=== PATIENT | female | born 1945 | race Caucasian/White ===

== ENCOUNTER 2017-09-09 10:01 | Outpatient (CLI) | payer MEDICARE | END 2017-09-09 10:02 | disposition home or self-care (01) | LOC: BICMAMMO 10:01 | PROVIDERS: ATTEND Family Medicine | DX: Z12.31 Encounter for screening mammogram for malignant neoplasm of breast (principal); R92.1 Mammographic calcification found on diagnostic imaging of breast | CPT/HCPCS: 77063; 77067 ==

== ENCOUNTER 2018-08-19 09:11 | Outpatient (CLI) | payer MEDICARE ==
--- NOTE | 2018-08-19 10:02 | BD ---
DEXA SCAN: INDICATION: Osteoporosis screening. COMPARISON: Prior exam dated 06/01/2016. FINDINGS: Lumbar Spine: BMD (g/cm2) L1 0.700 T-Score: -2.6 Z-Score: -0.7 L2 0.799 T-Score: -2.1 Z-Score: 0.1 L3 0.802 T-Score: -2.6 Z-Score: -0.3 L4 0.990 T-Score: -0.6 Z-Score: 1.7 L1-L4 0.843 T-Score: -1.9 Z-Score: 0.4 The bone mineral density of the L1 through L4 region has declined 2.8% from the baseline dated 2010 and has declined 6.4% from the previous study in 2017. Femoral Neck: 0.641 T-Score: -1.9 Z-Score: 0.0 Total Femur: 0.812 T-Score: -1.1 Z-Score: 0.5 The bone mineral density of the left total hip region has declined 3.8% from the baseline. The FRAX WHO fracture risk assessment tool for fracture risk for the patient for a major osteoporotic fracture is 17% and for a hip fracture is 5.8%. Impression: Based on WHO criteria, the patient's bone mineral density is considered osteopenic. The patient is a t moderate risk for fracture. The bone mineral density of the left femoral neck region has declined 3.8% from the previous exam dated 06/11/2016. Bone mineral density of the lumbar spine has declined 6 .4% from the previous study. POS: OFF
== END 2018-08-19 09:12 | disposition home or self-care (01) ==
LOC: BICMAMMO 09:11
PROVIDERS: ATTEND Family Medicine
DX: M81.0 Age-related osteoporosis without current pathological fracture (principal); M85.89 Other specified disorders of bone density and structure, multiple sites
CPT/HCPCS: 77080

== ENCOUNTER 2018-09-23 12:46 | Outpatient (CLI) | payer MEDICARE ==
--- NOTE | 2018-09-23 15:18 | MMO ---
Bilateral MAMMO Bilat Screen [facility]. CLINICAL HISTORY: Patient is 72 years old and is seen for screening. The patient has no family history of breast cancer. The patient has no personal history of cancer. VIEWS: The views performed were: bilateral craniocaudal with tomosynthesis and bilateral mediolateral oblique with tomosynthesis. FILMS COMPARED: The present examination has been compared to prior imaging studies performed at [facility] on 05/18/2014 and 09/09/2017, and at [facility] on 06/24/2012 and 06/30/2012. MAMMOGRAM FINDINGS: The breasts are heterogeneously dense, which could obscure a lesion on mammography. Finding 1: There are stable benign appearing calcifications seen in both breasts. There are also vascular calcifications. Finding 2: There is a nodule seen in the sub-areolar region of the left breast. There are no suspicious masses, suspicious calcifications, or new areas of architectural distortion. IMPRESSION: THERE IS NO MAMMOGRAPHIC EVIDENCE OF MALIGNANCY. A ROUTINE FOLLOW-UP MAMMOGRAM IN 1 YEAR IS RECOMMENDED. THE RESULTS OF THIS EXAM WERE SENT TO THE PATIENT. ACR BI-RADS Category 2 - Benign finding MAMMOGRAPHY NOTE: 1. A negative mammogram report should not delay a biopsy if a dominant of clinically suspicious mass is present. 2. Approximately 10% to 15% of breast cancers are not detected by mammography. 3. Adenosis and dense breasts may obscure an underlying neoplasm.
== END 2018-09-23 12:47 | disposition home or self-care (01) ==
LOC: BICMAMMO 12:46
PROVIDERS: ATTEND Family Medicine
DX: Z12.31 Encounter for screening mammogram for malignant neoplasm of breast (principal)
CPT/HCPCS: 77063; 77067

== ENCOUNTER 2019-10-10 10:43 | Outpatient (CLI) | payer MEDICARE ==
--- NOTE | 2019-10-10 11:32 | MMO ---
Bilateral MAMMO Bilat Screen [facility]. CLINICAL HISTORY: Patient is 73 years old and is seen for screening. The patient has no family history of breast cancer. The patient has no personal history of cancer. VIEWS: The views performed were: bilateral craniocaudal with tomosynthesis and bilateral mediolateral oblique with tomosynthesis. FILMS COMPARED: The present examination has been compared to prior imaging studies performed at [facility] on 09/09/2017 and 09/23/2018, and at [facility] on 05/30/2015 and 06/11/2016. This study has been interpreted with the assistance of computer-aided detection. MAMMOGRAM FINDINGS: The breasts are heterogeneously dense, which could obscure a lesion on mammography. There are stable benign appearing calcifications seen in both breasts. There are also vascular calcifications. Nodularity is stable. There are no suspicious masses, suspicious calcifications, or new areas of architectural distortion. IMPRESSION: THERE IS NO MAMMOGRAPHIC EVIDENCE OF MALIGNANCY. A ROUTINE FOLLOW-UP MAMMOGRAM IN 1 YEAR IS RECOMMENDED. THE RESULTS OF THIS EXAM WERE SENT TO THE PATIENT. ACR BI-RADS Category 2 - Benign finding MAMMOGRAPHY NOTE: 1. A negative mammogram report should not delay a biopsy if a dominant of clinically suspicious mass is present. 2. Approximately 10% to 15% of breast cancers are not detected by mammography. 3. Adenosis and dense breasts may obscure an underlying neoplasm. Reported by: SOURAV SAMUEL MD Electonically Signed: [id number]
== END 2019-10-10 10:44 | disposition home or self-care (01) ==
LOC: BICMAMMO 10:43
PROVIDERS: ATTEND Family Medicine
DX: Z12.31 Encounter for screening mammogram for malignant neoplasm of breast (principal)
CPT/HCPCS: 77063; 77067

== ENCOUNTER 2020-06-24 08:10 | Outpatient (CLI) | payer MEDICARE ==
--- NOTE | 2020-06-24 10:24 | BD ---
DEXA BONE DENSITY STUDY: Date: 06/24/2020 HISTORY: Postmenopausal. FINDINGS: Lumbar Spine: BMD (g/cm2) L1 0.779 T-Score: -1.9 L2 0.838 T-Score: -1.7 L3 1.024 T-Score: -0.5 L4 0.958 T-Score: -0.9 Total 0.914 T-Score: -1.2 Left Femoral Neck: 0.681 T-Score: -1.5 Total Femur: 0.826 T-Score: -1.0 IMPRESSION: 1. Osteopenia of the left femoral neck and lumbar spine. 2. The 10 year fracture risk for major osteoporotic fracture is 17% and for a hip fracture is 6.9%. These fracture probabilities are calculated for an untreated patient. POS: [facility]
== END 2020-06-24 08:11 | disposition home or self-care (01) ==
LOC: BICMAMMO 08:10
PROVIDERS: ATTEND Physician Assistant
DX: M85.852 Other specified disorders of bone density and structure, left thigh (principal); M85.88 Other specified disorders of bone density and structure, other site
CPT/HCPCS: 77080

== ENCOUNTER 2020-10-18 13:09 | Outpatient (CLI) | payer MEDICARE | END 2020-10-18 13:10 | disposition home or self-care (01) | LOC: BICMAMMO 13:09 | PROVIDERS: ATTEND Physician Assistant | DX: Z12.31 Encounter for screening mammogram for malignant neoplasm of breast (principal) | CPT/HCPCS: 77063; 77067 ==

== ENCOUNTER 2021-10-28 11:43 | Outpatient (CLI) | payer MEDICARE | END 2021-10-28 11:44 | disposition home or self-care (01) | LOC: BICMAMMO 11:43 | PROVIDERS: ATTEND Physician Assistant | DX: Z12.31 Encounter for screening mammogram for malignant neoplasm of breast (principal) | CPT/HCPCS: 77063; 77067 ==

== ENCOUNTER 2021-11-28 15:20 | Emergency (ER) | payer MEDICARE ==
[~2021-11-28 15:20] MED LIST: Iopamidol-370 76% 500 ML 1 ML ONE
[2021-11-28 16:56] LABS: #Eosinphils 0.1 thou/uL (0.0-0.7); #Lymphocytes 1.7 thou/uL (1.20-3.40); %Basophils 0.3 % (0.0-1.0); %Eosinophils 1.1 % (0.0-10.0); %Lymphocytes 15.5 % (21.0-51.0); %Neutrophils 74.1 % (42.0-75.0); Hemoglobin 14.3 g/dL (12.0-16.0); Mean Corpuscular HGB CONC 33.3 g/dL (32.0-36.0); Mean Corpuscular Hemoglobin 30.9 pg (27.0-31.0); Mean Corpuscular Volume 93.1 fL (78.0-98.0); Mean Platelet Volume 7.4 fL (7.4-10.4); Platelet Count 276 thou/uL (130-400); RBC Distribution Width 11.9 % (11.5-14.5); Red Blood Cell (RBC) Count 4.63 mill/uL (4.20-5.40); White Blood Cell (WBC) Count 10.8 thou/uL (4.8-10.8)
[2021-11-28 17:42] LABS: ALT (SGPT) 9 U/L (8-55); AST (SGOT) 21 U/L (5-34); Albumin 4.2 g/dL (3.4-4.8); Alkaline Phosphatase 65 U/L (40-110); Anion Gap 13 mmol/L (10-20); BUN (Urea Nitrogen) 8 mg/dL (9.8-20.1); Bilirubin, Total 0.6 mg/dL (0.2-1.2); Calc. Creatinine Clearance 0 mL/min (70-130); Calcium 9.8 mg/dL (7.8-10.44); Carbon Dioxide 25 mmol/L (23-31); Chloride 102 mmol/L (98-107); Estimated GFR 80; Globulin 3.7 g/dL (2.4-3.5); Glucose 109 mg/dL (83-110); Potassium 3.6 mmol/L (3.5-5.1); Protein, Total 7.9 g/dL (5.8-8.1); Sodium 136 mmol/L (136-145)
== END 2021-11-28 19:36 | disposition home or self-care (01) ==
LOC: ERS 15:20
DX: K57.21 Diverticulitis of large intestine with perforation and abscess with bleeding (principal); E03.9 Hypothyroidism, unspecified; Z79.899 Other long term (current) drug therapy
CPT/HCPCS: 36415; 74177; 80053; 85025; 86850; 86900; 86901; Q9967

== ENCOUNTER 2022-05-29 11:37 | Outpatient (CLI) | payer MEDICARE | END 2022-05-29 11:38 | disposition home or self-care (01) | LOC: BICRAD 11:37 | PROVIDERS: ATTEND Physician Assistant | DX: M54.50 Low back pain, unspecified (principal); M47.816 Spondylosis without myelopathy or radiculopathy, lumbar region; M43.16 Spondylolisthesis, lumbar region; E78.5 Hyperlipidemia, unspecified; E55.9 Vitamin D deficiency, unspecified; E03.9 Hypothyroidism, unspecified | CPT/HCPCS: 36415; 72100; 80053; 80061; 82306; 84443; 85025 ==

== ENCOUNTER 2022-06-03 13:52 | Outpatient (CLI) | payer MEDICARE | END 2022-06-03 13:53 | disposition home or self-care (01) | LOC: BICMAMMO 13:52 | PROVIDERS: ATTEND Physician Assistant | DX: M81.0 Age-related osteoporosis without current pathological fracture (principal); E55.9 Vitamin D deficiency, unspecified; M85.89 Other specified disorders of bone density and structure, multiple sites | CPT/HCPCS: 77080 ==